=== PATIENT | female | born 2000 | race Two or more races ===

== ENCOUNTER 2025-06-04 09:11 | Outpatient (CLI) | payer OTHER | END 2025-06-04 09:13 | disposition home or self-care (01) | LOC: PRENATAL 09:11 | PROVIDERS: ATTEND Obstetrics & Gynecology Maternal & Fetal Medicine | DX: Z76.1 Encounter for health supervision and care of foundling (principal) ==

== ENCOUNTER 2025-07-18 07:39 | Outpatient (CLI) | payer OTHER | END 2025-07-18 07:41 | disposition home or self-care (01) | LOC: PRENATAL 07:39 | PROVIDERS: ATTEND Obstetrics & Gynecology Maternal & Fetal Medicine | DX: O44.00 Complete placenta previa NOS or without hemorrhage, unspecified trimester (principal); O99.280 Endocrine, nutritional and metabolic diseases complicating pregnancy, unspecified trimester; O43.90 Unspecified placental disorder, unspecified trimester; Z3A.20 20 weeks gestation of pregnancy ==

== ENCOUNTER → 2025-09-09 12:46 | Outpatient (CLI) | payer OTHER | END | disposition home or self-care (01) | LOC: PRENATAL 12:46 | PROVIDERS: ATTEND Obstetrics & Gynecology Maternal & Fetal Medicine | DX: O26.842 Uterine size-date discrepancy, second trimester (principal); O36.8120 Decreased fetal movements, second trimester, not applicable or unspecified; O99.282 Endocrine, nutritional and metabolic diseases complicating pregnancy, second trimester; O43.92 Unspecified placental disorder, second trimester; Z3A.26 26 weeks gestation of pregnancy ==

== ENCOUNTER 2025-10-21 08:27 | Outpatient (CLI) | payer OTHER | END 2025-10-21 08:30 | disposition home or self-care (01) | LOC: PRENATAL 08:27 | PROVIDERS: ATTEND Obstetrics & Gynecology Maternal & Fetal Medicine | DX: O26.843 Uterine size-date discrepancy, third trimester (principal); O36.8130 Decreased fetal movements, third trimester, not applicable or unspecified; O99.283 Endocrine, nutritional and metabolic diseases complicating pregnancy, third trimester; O43.93 Unspecified placental disorder, third trimester; Z3A.33 33 weeks gestation of pregnancy ==